=== PATIENT | female | born 1950 | race Two or more races ===

== ENCOUNTER 2016-06-05 17:38 | Inpatient (IN) | payer MEDICARE ==
[~2016-06-05] VITALS: Ht 152.4 cm; Wt 78.9 kg
--- NOTE | 2016-06-05 17:44 | NUR ---
PT [id number] FROM URGENT CARE: CHEST PAIN. NITRO X 3 GIVEN IN FIELD. BS 168 IN FIELD. PLACED ON MONITOR. VSS. AWAITING MD ORDER
--- NOTE | 2016-06-05 17:50 | NUR ---
AT BEDSIDE FOR EVAL
--- NOTE | 2016-06-05 18:06 | NUR ---
LAB AT BEDSIDE BLOOD SAMPLE COLLECTED SENT TO LAB
[2016-06-05 18:09] LABS: BASOPHILS % (AUTO) 0.4 % (0.0-2.0); EOSINOPHILS # (AUTO) 0.1 /CMM (0.0-0.7); EOSINOPHILS % (AUTO) 1.2 % (0.0-6.0); HEMATOCRIT 40 % (33-45); HEMOGLOBIN 13.7 g/dL (11.5-14.8); LYMPHOCYTES # (AUTO) 4.4 /CMM (0.8-4.8); LYMPHOCYTES % (AUTO) 46.5 % (20.0-44.0); MEAN CORPUSCULAR HEMOGLOBIN 32 PG (26.0-33.0); MEAN CORPUSCULAR HGB CONC 35 g/dl (31.0-36.0); MEAN CORPUSCULAR VOLUME 92 fL (82-100); MONOCYTES # (AUTO) 0.7 /CMM (0.1-1.30); MONOCYTES % (AUTO) 7.5 % (2.0-12.0); NEUTROPHILS # (AUTO) 4.1 /CMM (1.8-8.9); NEUTROPHILS % (AUTO) 44.4 % (43.0-81.0); PLATELET COUNT (AUTO) 335 /CMM (150-450); RDW COEFFICIENT OF VARIATION 13.3 (11.5-15.0); WHITE BLOOD COUNT (AUTO) 9.3 K/uL (4.3-11.0)
[2016-06-05 18:19] LABS: CALCIUM, SERUM 9.5 mg/dL (8.5-10.1); CREATININE 0.8 mg/dL (0.6-1.3); POTASSIUM 3.8 mmol/L (3.5-5.1)
[2016-06-05 18:22] LABS: INR 0.97 (0.87-1.13); PROTHROMBIN TIME 10.1 SECS (9.5-12.7)
[2016-06-05 18:27] LABS: TROPONIN I 0.12 ng/mL (0.00-0.056)
[2016-06-05] MEDS ORDERED: HYDR-3326 PO (18:42)
[2016-06-05] MEDS ORDERED: METH2.5T PO (18:42)
[2016-06-05] MEDS ORDERED: DULO60CA45 PO (18:42)
[2016-06-05] MEDS ORDERED: MULT-479 PO (18:42)
[2016-06-05] MEDS ORDERED: FOLI1TAB16 PO (18:42)
[2016-06-05] MEDS ORDERED: CERT400S SQ (18:44)
[2016-06-05] MEDS ORDERED: NITROGLYCERIN 0.4 MG/TAB BOTTLE ONE (19:08)
[2016-06-05] MEDS ORDERED: CLOPIDOGREL BISULFATE 75 MG TABLET ONE (19:08)
[2016-06-05] MEDS ORDERED: ENOXAPARIN SODIUM 80 MG/0.8 ML DISP.SYRIN SQ ONE (19:09)
[2016-06-05] MEDS ORDERED: ENOXAPARIN SODIUM 60 MG/0.6 ML DISP.SYRIN SQ ONE (19:30)
[2016-06-05] MEDS ORDERED: NITROGLYCERIN 0.4 MG/TAB BOTTLE SL ONE (19:30)
[2016-06-05] MEDS ORDERED: CLOPIDOGREL BISULFATE 75 MG TABLET PO ONE (19:30)
--- NOTE | 2016-06-05 19:49 | NUR ---
GAVE REPROT TO CHLOE GABRIEL TELE [address] WEST TRANSFER VIA ACLS PROTOCOL
[2016-06-05 20:10] VITALS: BP 141/71
[2016-06-05 20:14] VITALS: BP 141/71
[2016-06-05] MEDS ORDERED: ACETAMINOPHEN 325 MG TABLET PO PRN (20:30)
[2016-06-05] MEDS ORDERED: LORAZEPAM 1 MG TABLET PO PRN (20:30)
[2016-06-05] MEDS ORDERED: ONDANSETRON HCL/PF 4 MG/2 ML VIAL IVP PRN (20:30)
[2016-06-05] MEDS ORDERED: NITROGLYCERIN 0.4 MG/TAB BOTTLE SL PRN (20:30)
[2016-06-05] MEDS ORDERED: DOCUSATE SODIUM 100 MG CAPSULE PO PRN (20:30)
[2016-06-05] MEDS ORDERED: DEXTROSE 50%-WATER 50 ML DISP.SYRIN IV PRN (20:30)
[2016-06-05] MEDS ORDERED: MORPHINE SULFATE INJ 2 MG/ML DISP.SYRIN IV PRN (20:30)
[2016-06-05] MEDS ORDERED: ZOLPIDEM TARTRATE 5 MG TABLET PO PRN (20:30)
--- NOTE | 2016-06-05 20:30 | NUR ---
RN INITIAL NOTES RECEIVED PATIENT FROM ER, PATIENT IN A GURNEY, TRANSPORTED VIA ACLS PROTOCOL. PATIENT OBSERVED WITH STEADY GAIT, ABLE TO AMBULATE AD HELEN, STANDBY PRECAUTION OBSERVED. PATIENT DENIES ANY PAIN AND DISCOMFORT. DENIES CHEST PAIN, DENIES DIZZINESS. PATIENT ORIENTED TO UNIT PROTOCOLS AND USE OF CALL LIGHT. PATIENT SATURATING WELL AT 97% ON ROOM AIR, INITIATED O2 THERAPY AT 2LPM VIA NC PER PROTOCOL FOR CHEST PAIN. PATIENT CONNECTED TO TELE, SR WITH BBB AT 82. SKIN IS INTACT, NO SKIN BREAKDOWN. NO LIMITATIONS IN ROM. R FOREARM G18, FLUSHED AND PATENT, NO SIGNS OF INFILTRATION. PATIENT'S BELONGINGS CHECK, FILED IN CHART. PATIENT'S NEEDS ANTICIPATED AND MET. SAFETY AND COMFORT ENSURED. BED IN LOW AND LOCKED POSITION. CALL LIGHT IN REACH. WILL MONITOR CLOSELY. UNDER THE CARE OF DR. WEST, ORDERS NOTED AND CARRIED OUT. PATIENT UPDATED WITH PLAN OF CARE.
[2016-06-05] MEDS ORDERED: CARVEDILOL 6.25 MG TABLET ONE (21:05)
[2016-06-05] MEDS ORDERED: HYDROCODONE/APAP 5/325MG 1 EACH TABLET ONE (21:06)
--- NOTE | 2016-06-05 21:15 | NUR ---
RN NOTES FOLLOWED UP WITH DR. WEST REGARDING THE PATIENT'S TROPONIN ORDER. PATIENT'S TROPONIN TO BE CYCLED WITH EKG [id number]. ORDER OBTAINED, NOTED AND CARRIED OUT. PATIENT MADE AWARE.
[2016-06-05] MEDS: HYDROCODONE/APAP 5/325MG 1 EACH TABLET PO PRN (21:24)
[2016-06-05] MEDS: CARVEDILOL 12.5 MG TABLET PO SCH (21:27)
[2016-06-05] MEDS: BLOOD SUGAR DIAGNOSTIC 1 EACH STRIP IN SCH (21:32)
[2016-06-05] MEDS: INSULIN REGULAR, HUMAN 100 UNIT/ML 3 ML VIAL SQ PRN (21:39)
--- NOTE | 2016-06-05 21:40 | NUR ---
RN NOTES PATIENT WITH ACCUCHECK ORDER. PATIENT'S BS NOTED TO BE 156. PATIENT WAS SUPPOSED TO GET 2UNITS OF REGULAR INSULIN ORDERED PER SLIDING SCALE. PATIENT REFUSED INSULIN, PER PATIENT SHE HAS HAD NOT USED ANY INSULIN NOR WAS DIAGNOSED WITH DM. EXPLAINED RISKS AND BENEFITS, TO NO AVAIL. PATIENT'S RIGHTS RESPECTED. INFORMED DR. WEST OF THE PATIENT'S REFUSAL FOR USE OF INSULIN, DR. WEST OKAY WITH IT, CONTINUE WITH ACCUCHECK ORDERED. PATIENT MADE AWARE, VERBALIZED UNDERSTANDING WITH ACCUCHECK. NOTED.
[2016-06-05] MEDS: DULOXETINE HCL 30 MG CAPSULE.DR PO SCH (21:44)
[2016-06-06] VITALS: BP 116/66
--- NOTE | 2016-06-06 00:45 | NUR ---
RN NOTES DR. WEST ON UNIT. NOTIFIED DR. WEST OF THE PATIENT'S TROPONIN AT 2200, VALUE AT 0.133. EKG ALSO SHOWN TO DR. WEST, NO CHANGE FROM THE EKG IN ER. NNO GIVEN.
--- NOTE | 2016-06-06 01:40 | NUR ---
RN NOTES PATIENT IN BED, SLEEPING COMFORTABLY. PATIENT WITH NO ACUTE DISTRESS. RESPIRATION IS EVEN AND UNLABORED WITH NO DISTRESS. PATIENT NOTED TO BE SB ON MONITOR, 57-58. NON-SUSTAINING AND JUMPS BACK UP TO SR AT 60s. CALL LIGHT IN REACH.
[2016-06-06] MEDS: HYDROCODONE/APAP 5/325MG 1 EACH TABLET PO PRN ×3 (03:11→23:05)
[2016-06-06 04:00] VITALS: BP 139/76
[2016-06-06 04:46] LABS: BASOPHILS % (AUTO) 0.5 % (0.0-2.0); EOSINOPHILS # (AUTO) 0.1 /CMM (0.0-0.7); EOSINOPHILS % (AUTO) 1.5 % (0.0-6.0); HEMATOCRIT 37 % (33-45); HEMOGLOBIN 12.5 g/dL (11.5-14.8); LYMPHOCYTES # (AUTO) 5.5 /CMM (0.8-4.8); LYMPHOCYTES % (AUTO) 60.3 % (20.0-44.0); MEAN CORPUSCULAR HEMOGLOBIN 32 PG (26.0-33.0); MEAN CORPUSCULAR HGB CONC 34 g/dl (31.0-36.0); MEAN CORPUSCULAR VOLUME 93 fL (82-100); MONOCYTES # (AUTO) 0.5 /CMM (0.1-1.30); NEUTROPHILS # (AUTO) 2.9 /CMM (1.8-8.9); NEUTROPHILS % (AUTO) 31.7 % (43.0-81.0); PLATELET COUNT (AUTO) 289 /CMM (150-450); RDW COEFFICIENT OF VARIATION 13.8 (11.5-15.0); RED BLOOD CELL COUNT(AUTO) 3.96 MIL/uL (4.0-5.2); WHITE BLOOD COUNT (AUTO) 9.2 K/uL (4.3-11.0)
[2016-06-06 05:02] LABS: CREATININE 0.8 mg/dL (0.6-1.3); MAGNESIUM 1.7 mg/dL (1.8-2.4); PHOSPHORUS 4.3 mg/dL (2.5-4.9); POTASSIUM 3.9 mmol/L (3.5-5.1)
[2016-06-06 05:13] LABS: EOSINOPHILS % (MANUAL) 1 % (0-4); LYMPHOCYTES % (MANUAL) 61 % (16-48); MONOCYTES % (MANUAL) 3 % (0-11.0); NEUTROPHILS % (MANUAL) 34 (42-76); PLATELET ESTIMATE ADEQUATE; REACTIVE LYMPHOCYTES 1 % (0-0)
[2016-06-06 05:29] LABS: PROTHROMBIN TIME 10.7 SECS (9.5-12.7)
--- NOTE | 2016-06-06 06:00 | NUR ---
RN NOTES AT 0545, PATIENT COMPLAINED OF BILATERAL JAW PAIN, 6/10. UPON FURTHER ASSESSMENT, PATIENT ALSO COMPLAINING OF BILATERAL WRIST PAIN, AND BILATERAL SHOULDER PAIN. VS: 166/68, 94% ON ROOM AIR, 61bpm. PATIENT REQUESTED NITROSTAT SL PER PATIENT IT HAS HELPED HER IN THE ER WHEN SHE EXPERIENCED THE SAME DISCOMFORT. GIVEN TO PATIENT. REASSESSED AT 0550, PATIENT VERBALIZES RELIEF FROM PAIN, 3/10. VS: 131/73, 62, 96% WITH 2LPM OF O2 VIA NC. PATIENT'S TROPONIN TRENDING DOWN, 0.115, EKG WITH NO CHANGES. WILL ENDORSE ACCORDINGLY.
[2016-06-06 06:18] LABS: APPEARANCE,URINE CLEAR (CLEAR); BILIRUBIN,URINE NEGATIVE (NEGATIVE); BLOOD, URINE NEGATIVE Ery/uL (NEGATIVE); COLOR,URINE YELLOW (YELLOW); KETONES,URINE NEGATIVE (NEGATIVE); LEUKOCYTE ESTERASE ,URINE NEGATIVE (NEGATIVE); NITRITE, URINE NEGATIVE (NEGATIVE); PH,URINE 6.5 (5.0-8.0); PROTEIN,URINE NEGATIVE (NEGATIVE); UGLUCOSE NEGATIVE (NEGATIVE); UROBILINOGEN,URINE 0.2 EU/dL (0.2)
[2016-06-06 06:39] LABS: PHENCYCLIDINE SCREEN,URINE NEGATIVE (NEGATIVE)
[2016-06-06 06:44] LABS: CANNABINOID, URINE POSITIVE (NEGATIVE)
[2016-06-06] MEDS: BLOOD SUGAR DIAGNOSTIC 1 EACH STRIP IN SCH ×4 (07:33→22:56)
[2016-06-06] MEDS: INSULIN REGULAR, HUMAN 100 UNIT/ML 3 ML VIAL SQ PRN ×2 (07:34→13:09)
[2016-06-06 08:00] VITALS: BP_SYST 152; BP_SYST 153; BP_DIAS 66
[2016-06-06] MEDS ORDERED: METHOTREXATE SODIUM (2.5MG) 2.5 MG TABLET PO SCH (09:00)
[2016-06-06] MEDS: CARVEDILOL 12.5 MG TABLET PO SCH ×2 (09:03→22:57)
[2016-06-06] MEDS: MULTIVITAMINS W-MINERALS 1 TAB TABLET PO SCH (09:04)
[2016-06-06] MEDS: FOLIC ACID 1 MG TABLET PO SCH (09:04)
[2016-06-06] MEDS: ENOXAPARIN SODIUM 80 MG/0.8 ML DISP.SYRIN SQ SCH ×2 (09:11→23:04)
--- NOTE | 2016-06-06 09:43 | NUR ---
RN NOTES PT AND DAUGHTER AT BEDSIDE, INFORMED BOTH IF THEY COULD BRING METHOTREXATE. PER DAUGHTER THEY WILL BRING MED
[2016-06-06] MEDS: MORPHINE SULFATE INJ 2 MG/ML DISP.SYRIN IV PRN ×2 (10:57→19:36)
[2016-06-06 12:00] VITALS: BP_SYST 146; BP_SYST 155; BP_DIAS 65; BP_DIAS 67
[2016-06-06] MEDS ORDERED: ATORVASTATIN 10 MG TABLET PO SCH (12:00)
[2016-06-06] MEDS ORDERED: TICAGRELOR 90 MG TABLET PO SCH (12:00)
[2016-06-06 12:23] LABS: THYROID STIMULATING HORMONE 1.013 uIU/mL (0.358-3.74)
[2016-06-06] MEDS ORDERED: IV SET PRIMARY PUMP SET 1 EA INFUS.SET MC ONE (12:42)
[2016-06-06] MEDS: Magnesium 1GM/D5W 100ML PREMIX 100 ML IV SCH ×2 (12:57→14:47)
[2016-06-06] MEDS: VALSARTAN 80 MG TABLET PO SCH (13:00)
[2016-06-06] MEDS: CLOPIDOGREL BISULFATE 75 MG TABLET PO SCH (13:00)
[2016-06-06 16:00] VITALS: BP 138/66
--- NOTE | 2016-06-06 18:00 | NUR ---
RN NOTES PT RESTING IN BED, AWAKE ALERT ORIENTEDX3. NO ACUTE DISTRESS NOTED. ALL DUE MEDS GIVEN, NEEDS ATTENDED AND MET. PT SAID SHE RECEIVED A CALL FROM CONTROL INTEGRATION ENGINEER, SHE WAS INFORMED HER CARDIAC CATH WILL BE ON WEDNESDAY AT [facility], AT 10.30 AM FRONT LINE LEADER TIME IS AT 7.30 AM. CN SOON AWARE.
--- NOTE | 2016-06-06 19:00 | NUR ---
RN INITIAL NOTES RECEIVED PATIENT IN BED, PATIENT COMPLAINING OF R SHOULDER PAIN. PER PATIENT SHE WAS AMBULATING DOWN THE HALLWAY AND SHE SUDDENLY FELT DISCOMFORT ON HER SHOULDERS AND SHE GOT ANXIOUS. VS: 144/86, 94% ON ROOM AIR, 72, 20, 6/10. PATIENT REQUESTED FOR PAIN MEDICATION, PATIENT TO BE MEDICATED FOR PAIN. REINFORCED USE OF O2 FOR COMFORT. ENCOURAGED PATIENT TO CALM DOWN AND RELAX, REDIRECTED PATIENT NEEDED, DISTRACTIONS PROVIDED FOR THE PATIENT, PER PATIENT SHE'S STARTING TO FEEL CALM. PATIENT'S NEEDS ANTICIPATED AND MET. SAFETY AND COMFORT ENSURED. BED IN LOW AND LOCKED POSITION. CALL LIGHT IN REACH. WILL MONITOR CLOSELY. Addendum: 06/06/16 at 2214 by NURIA PERALTA RN PATIENT IS SR with BBB ON TELE, HR IN THE 70s.
[2016-06-06 20:00] VITALS: BP_SYST 146; BP_SYST 151; BP_DIAS 64; BP_DIAS 75
--- NOTE | 2016-06-06 21:30 | NUR ---
RN NOTES PATIENT SLEEPING SOUNDLY, NO DISTRESS. SR ON MONITOR WITH HR OF 62. SAFETY AND COMFORT ENSURED. CALL LIGHT IN REACH.
[2016-06-06] MEDS: DULOXETINE HCL 30 MG CAPSULE.DR PO SCH (22:56)
--- NOTE | 2016-06-06 23:20 | NUR ---
RN NOTES PATIENT AWAKE AT THIS TIME, ALL DUE HS MEDS GIVEN TO PATIENT ORDERED. PATIENT VERBALIZES FEELING WELL RESTED, NO ACUTE DISTRESS AND DISCOMFORT. PATIENT C/O BILATERAL WRIST ARTHRITIC PAIN, PATIENT REQUESTED FOR NORCO, GIVEN NEEDED. WILL MONITOR FOR EFFECTIVENESS. NEEDS ANTICIPATED AND MET AT THIS TIME. CALL LIGHT IN REACH.
[2016-06-07] VITALS: BP 150/73
[2016-06-07 04:00] VITALS: BP 162/66
[2016-06-07] MEDS: HYDROCODONE/APAP 5/325MG 1 EACH TABLET PO PRN ×4 (04:04→21:02)
--- NOTE | 2016-06-07 06:50 | NUR ---
RN NOTES PATIENT IN BED, RESTING COMFORTABLY. NOT IN ANY DISTRESS. PATIENT MEDICATED FOR PAIN NEEDED WITH GOOD EFFECT FOR THE PATIENT, ABLE TO VERBALIZE RELIEF FROM PAIN. ABLE TO DO SELF CARE AD HELEN, ASSISTED NEEDED. PATIENT'S NEEDS ANTICIPATED AND MET. SAFETY AND COMFORT ENSURED. BED IN LOW AND LOCKED POSITION. CALL LIGHT IN REACH. ALL DUE MEDS GIVEN ORDERED. WILL ENDORSE ACCORDINGLY FOR CONTINUITY OF CARE. Addendum: 06/07/16 at 0658 by NURIA PERATLA RN REMAINS SINUS RHYTHM, OCCASIONALLY GOES TO SB OVERNIGHT WITH LOWEST AT 58 DURING SLEEPING HOURS. NO C/O CHEST PAIN OVERNIGHT.
--- NOTE | 2016-06-07 07:50 | NUR ---
SVP RESEARCH AND STRATEGIC ANALYSIS INITIAL NOTES PT IS IN BED, A/O X4, IN O2 NC 2LPM, SATURATING 97%, NO C/O SOB, NO CHEST PAIN, ON TELE MONITOR SR, BRP MOTIVATED PT OF SELF CARE, REMINDED PT ABOUT NPO STATUS AFTER MIDNIGHT, IV SITES PATENT AND FLUSHED. ALL SAFETY MEASURES MAINTAINED, CALL LIGHTS WITHIN REACH
[2016-06-07 08:00] VITALS: BP 111/71
[2016-06-07] MEDS: BLOOD SUGAR DIAGNOSTIC 1 EACH STRIP IN SCH ×4 (08:11→21:03)
[2016-06-07] MEDS: MULTIVITAMINS W-MINERALS 1 TAB TABLET PO SCH (08:12)
[2016-06-07] MEDS: FOLIC ACID 1 MG TABLET PO SCH (08:13)
[2016-06-07] MEDS: CARVEDILOL 12.5 MG TABLET PO SCH ×2 (08:14→21:02)
[2016-06-07] MEDS: VALSARTAN 80 MG TABLET PO SCH (08:15)
[2016-06-07] MEDS: MORPHINE SULFATE INJ 2 MG/ML DISP.SYRIN IV PRN ×2 (09:36→17:29)
[2016-06-07] MEDS: CLOPIDOGREL BISULFATE 75 MG TABLET PO SCH (10:41)
[2016-06-07] MEDS: ENOXAPARIN SODIUM 80 MG/0.8 ML DISP.SYRIN SQ SCH ×2 (10:43→20:22)
[2016-06-07 12:00] VITALS: BP 124/68
[2016-06-07 16:00] VITALS: BP 131/69
--- NOTE | 2016-06-07 19:49 | NUR ---
all [facility] meds cleared for pt safety
[2016-06-07 20:00] VITALS: BP 126/60
--- NOTE | 2016-06-07 20:20 | NUR ---
RN NOTES SPOKE WITH DR WEST, HOLD LOVENOX D/T CARDIAC CATH PROCEDURE SCHEDULED AT AM.
[2016-06-07] MEDS: DULOXETINE HCL 30 MG CAPSULE.DR PO SCH (21:03)
[2016-06-07] MEDS: INSULIN REGULAR, HUMAN 100 UNIT/ML 3 ML VIAL SQ PRN (21:11)
[2016-06-08] VITALS: BP 119/50
[2016-06-08] MEDS: HYDROCODONE/APAP 5/325MG 1 EACH TABLET PO PRN ×2 (03:15→08:03)
[2016-06-08 04:00] VITALS: BP 143/68
[2016-06-08 06:49] LABS: BASOPHILS % (AUTO) 0.4 % (0.0-2.0); EOSINOPHILS # (AUTO) 0.1 /CMM (0.0-0.7); EOSINOPHILS % (AUTO) 2.1 % (0.0-6.0); HEMATOCRIT 39 % (33-45); LYMPHOCYTES # (AUTO) 3.8 /CMM (0.8-4.8); LYMPHOCYTES % (AUTO) 54.2 % (20.0-44.0); MEAN CORPUSCULAR HEMOGLOBIN 31 PG (26.0-33.0); MEAN CORPUSCULAR HGB CONC 34 g/dl (31.0-36.0); MEAN CORPUSCULAR VOLUME 93 fL (82-100); MONOCYTES # (AUTO) 0.5 /CMM (0.1-1.30); MONOCYTES % (AUTO) 7.5 % (2.0-12.0); NEUTROPHILS # (AUTO) 2.5 /CMM (1.8-8.9); NEUTROPHILS % (AUTO) 35.8 % (43.0-81.0); PLATELET COUNT (AUTO) 273 /CMM (150-450); RDW COEFFICIENT OF VARIATION 13.6 (11.5-15.0); RED BLOOD CELL COUNT(AUTO) 4.16 MIL/uL (4.0-5.2); WHITE BLOOD COUNT (AUTO) 7.1 K/uL (4.3-11.0)
--- NOTE | 2016-06-08 06:49 | NUR ---
RN NOTES CALLED [facility] DIRECTOR OF PATIENT CARE TWICE, WENT NO ANSWER, CALL WENT TO VOICE MAIL WILL CALL AGAIN AT 7AM
[2016-06-08] MEDS: BLOOD SUGAR DIAGNOSTIC 1 EACH STRIP IN SCH ×2 (06:55→12:00)
[2016-06-08 07:03] LABS: ALBUMIN 3.8 g/dL (3.4-5.0); BILIRUBIN,TOTAL 0.7 mg/dL (0.2-1.0); CALCIUM, SERUM 8.9 mg/dL (8.5-10.1); CREATININE 0.8 mg/dL (0.6-1.3); MAGNESIUM 1.6 mg/dL (1.8-2.4); PHOSPHORUS 4.4 mg/dL (2.5-4.9); POTASSIUM 4.3 mmol/L (3.5-5.1); TOTAL PROTEIN, SERUM 7.1 g/dL (6.4-8.2)
--- NOTE | 2016-06-08 07:19 | NUR ---
RN NOTES SPOKE WITH BONY FROM [facility] FORECLOSURE CLERK, CONSENT WILL BE DONE AT [facility] WHEN PATIENT ARRIVED. PER BONY PT WAS NOT ON THE SCHEDULE FOR 1030, BUT CARDIAC CATH CAN HAVE COME IN AT 1100 INSTEAD, RESISTANCE MACHINE WELDER SETTER WILL ARRANGE A LATER PROPERTY COORDINATOR TIME. INFORMED DR TO ABOUT THE SITUATION, AND PROCEDURE WILL BE DONE PLANNED.
[2016-06-08] MEDS ORDERED: Magnesium 1GM/D5W 100ML PREMIX 100 ML IV SCH (07:30)
--- NOTE | 2016-06-08 07:50 | NUR ---
DIRECTOR SOCIAL CLOSING NOTES NO SIGNIFICANT CHANGES OVERNIGHT, NO SOB, NO C/O CHEST PAIN, ON ROOM AIR SATURATING 99%. NPO EXCEPT MEDS SINCE MIDNIGHT, IV SITE FLUSHED AND PATENT. PT HAD EPISODES OF ANXIETY REGARDING THE PROCEDURE AT AM, STAYED WITH THE PATIENT, PROVIDED COMFORT AND SECURITY. ALL SAFETY MEASURES MAINTAINED, CALL LIGHTS WITHIN REACH. FAMILY AT BEDSIDE WILL, ENDORSED TO AM NURSE FOR CONTINUATION OF CARE.
[2016-06-08] MEDS: CLOPIDOGREL BISULFATE 75 MG TABLET PO SCH (07:56)
[2016-06-08] MEDS: MULTIVITAMINS W-MINERALS 1 TAB TABLET PO SCH (07:57)
[2016-06-08] MEDS: ENOXAPARIN SODIUM 80 MG/0.8 ML DISP.SYRIN SQ SCH (07:57)
[2016-06-08] MEDS: FOLIC ACID 1 MG TABLET PO SCH (07:57)
[2016-06-08] MEDS ORDERED: SECONDARY IV SET 1 EA INFUS.SET MC ONE (07:57)
[2016-06-08 08:00] VITALS: BP 128/73
--- NOTE | 2016-06-08 08:00 | NUR ---
RN INITIAL NOTES: Received patient on bed during rounds, awake, alert and oriented x4, able to make needs known, call lights placed within reached, instructed to press call light when in need of any assistance, patient verbalized understanding of instructions. On RA, saturating well. With LFA G22 SL flushed with NS and patent. NO SOB, No LOC, respirations are even and unlabored, no acute distress noted. NPO instructed and maintained. For Cardiac catheterization at [facility] at 1130am (changed timing from 1030am, shredder picker at 0900hrs), consent, [facility] will procure. Patient updated of change of time to [facility] . BPR, with contact guard, steady gait. No chestpain noted at this time. To continue to monitor accordingly.
[2016-06-08 08:49] VITALS: BP 128/73
[2016-06-08] MEDS: CARVEDILOL 12.5 MG TABLET PO SCH (08:49)
[2016-06-08] MEDS: VALSARTAN 80 MG TABLET PO SCH (08:49)
--- NOTE | 2016-06-08 09:00 | NUR ---
RN NOTES: Seen and examined by Dr. Beltran with orders noted and carried out. Mg+ 1.6 ordered for 2gms today, informed MD that 1 bag will be given and the next will be when she comes back and ok as per Dr. Beltran.
--- NOTE | 2016-06-08 09:15 | NUR ---
RN NOTES: Patient left the unit in stable condition via gurney by [facility] ambulance, family at bedside. No chestpain noted.
--- NOTE | 2016-06-08 14:32 | NUR ---
RN NOTES: CM Hermann informed patient not coming back from [facility] post procedure.
== END 2016-06-08 14:24 | disposition short-term general hospital (02) | DRG 282 ==
LOC: ER 17:40 → TELE1 20:18
PROVIDERS: ADMIT Internal Medicine; ATTEND Internal Medicine
DX: I21.4 Non-ST elevation (NSTEMI) myocardial infarction (principal); M06.9 Rheumatoid arthritis, unspecified; I25.10 Atherosclerotic heart disease of native coronary artery without angina pectoris; I10 Essential (primary) hypertension; E78.5 Hyperlipidemia, unspecified; E11.9 Type 2 diabetes mellitus without complications; F32.9 Major depressive disorder, single episode, unspecified; F41.9 Anxiety disorder, unspecified; Z79.899 Other long term (current) drug therapy; D72.820 Lymphocytosis (symptomatic); E83.42 Hypomagnesemia; M19.90 Unspecified osteoarthritis, unspecified site
CPT/HCPCS: 36415; 71010-TC; 80048-TC; 80053-TC; 80061-TC; 80305; 81000-TC; 82150-TC; 82962-TC; 83690-TC; 83735-TC; 84100-TC; 84439-TC; 84443-TC; 84484-TC; 85025-TC; 85610-TC; 85730-TC; 87081-TC; 93307-TC; A4606; J1650; J1815; J2270; J3475; J8610; Z7610

== ENCOUNTER 2020-10-25 05:13 | Inpatient (IN) | payer MEDICARE ==
[~2020-10-25] VITALS: Ht 157.5 cm; Wt 81.6 kg
[~2020-10-25 05:13] MED LIST: CERT400S SQ; DULO60CA45 PO; FOLI1TAB16 PO; HYDR-3974 PO; METH2.5T PO; MULT-479 PO
--- NOTE | 2020-10-25 05:33 | NUR ---
[id number] FOR C/O CHEST PAIN RADIATING TO STOMACH X2 DAYS. 3 NITRO STRUCTURAL STEEL IRONWORKER. +N/V. PT ALERT AND ORIENTED X3. NON LABORED BREATHING.
[2020-10-25 05:40] LABS: BASOPHILS # (AUTO) 0.2 K/uL (0.0-0.2); BASOPHILS % (AUTO) 0.7 % (0.0-2.0); EOSINOPHILS % (AUTO) 0.4 % (0.0-6.0); HEMATOCRIT 40 % (33-45); HEMOGLOBIN 13.2 g/dL (11.5-14.8); LYMPHOCYTES # (AUTO) 4.6 K/uL (0.8-4.8); LYMPHOCYTES % (AUTO) 21.7 % (20.0-44.0); MEAN CORPUSCULAR HGB CONC 33 g/dl (31.0-36.0); MEAN CORPUSCULAR VOLUME 96 fL (82-100); MONOCYTES # (AUTO) 1.4 K/uL (0.1-1.30); MONOCYTES % (AUTO) 6.8 % (2.0-12.0); NEUTROPHILS # (AUTO) 14.7 K/uL (1.8-8.9); NEUTROPHILS % (AUTO) 70.4 % (43.0-81.0); PLATELET COUNT (AUTO) 317 K/uL (150-450); RED BLOOD CELL COUNT(AUTO) 4.15 MIL/uL (4.0-5.2)
--- NOTE | 2020-10-25 06:10 | NUR ---
CALLED FOR COVID SWAB
--- NOTE | 2020-10-25 06:15 | NUR ---
pt attempted to get urine, unable to urinate
[2020-10-25 06:22] LABS: CALCIUM, SERUM 9.3 mg/dL (8.5-10.1); CARBON DIOXIDE 25 mmol/L (21-32); CHLORIDE 101 mmol/L (98-107); CREATININE 1.2 mg/dL (0.6-1.3); GLUCOSE 272 mg/dL (74-106); POTASSIUM 3.8 mmol/L (3.5-5.1); SODIUM SERUM 139 mmol/L (136-145); UREA NITROGEN, BLOOD 26 mg/dL (7-18)
[2020-10-25 06:28] LABS: ALANINE AMINOTRANSFERASE 15 U/L (12-78); ALBUMIN 4.1 g/dL (3.4-5.0); ALKALINE PHOSPHATASE 95 U/L (46-116); ASPARTATE AMINOTRANSFERASE 14 U/L (15-37); BILIRUBIN,DIRECT 0.1 mg/dL (0.0-0.2); BILIRUBIN,TOTAL 0.4 mg/dL (0.2-1.0); TOTAL PROTEIN, SERUM 7.9 g/dL (6.4-8.2)
[2020-10-25] MEDS ORDERED: MORPHINE SULFATE INJ 2 MG/ML DISP.SYRIN IV ONE ×2 (06:30→08:30)
[2020-10-25] MEDS ORDERED: MORPHINE SULFATE INJ 4 MG/ML DISP.SYRIN ONE ×2 (06:32→08:25)
--- NOTE | 2020-10-25 06:45 | NUR ---
covid swab collected and sent to lab.
[2020-10-25] MEDS ORDERED: METO25TA20 PO (08:54)
[2020-10-25] MEDS ORDERED: MELO-107 PO (08:54)
[2020-10-25] MEDS ORDERED: GABA-532 PO (08:54)
[2020-10-25 09:04] LABS: BILIRUBIN,URINE NEGATIVE (NEGATIVE); COLOR,URINE YELLOW (YELLOW); LEUKOCYTE ESTERASE ,URINE NEGATIVE (NEGATIVE); NITRITE, URINE NEGATIVE (NEGATIVE); PROTEIN,URINE NEGATIVE (NEGATIVE); UGLUCOSE >=1000 mg/dL (NEGATIVE); UROBILINOGEN,URINE 0.2 EU/dL (0.2)
[2020-10-25 09:26] LABS: BACTERIA,URINE Few /HPF (None Seen); RBC,URINE 0-2 /HPF (0-2); SQUAMOUS EPITHELIAL CELL,UR Moderate /HPF (None Seen); WBC,URINE 0-2 /HPF (0-3)
[2020-10-25] MEDS ORDERED: HYDROCODONE/APAP 5/325MG TABLET PO PRN (10:00)
[2020-10-25] MEDS ORDERED: MORPHINE SULFATE INJ 2 MG/ML DISP.SYRIN IV PRN (10:00)
[2020-10-25] MEDS ORDERED: CERTOLIZUMAB PEGOL 400 MG SQ SCH (10:00)
[2020-10-25] MEDS ORDERED: METHOTREXATE SODIUM (2.5MG) 2.5 MG TABLET PO SCH (10:00)
[2020-10-25] MEDS ORDERED: NITROGLYCERIN 0.4 MG/TAB BOTTLE SL PRN (10:00)
[2020-10-25] MEDS ORDERED: PANTOPRAZOLE 40 MG VIAL IV ONE ×2 (10:00)
[2020-10-25] MEDS ORDERED: CT SWABBABLE VALVE TRANS SET 1 EA INFUS.SET MC ONE (10:49)
[2020-10-25] MEDS ORDERED: METOPROLOL TARTRATE INJ 5 MG/5 ML AMPUL ONE ×2 (10:49→10:51)
[2020-10-25] MEDS ORDERED: IOHEXOL-350 100 ML VIAL IV ONE (10:49)
[2020-10-25] MEDS ORDERED: NITROGLYCERIN 0.4 MG/TAB BOTTLE ONE (10:50)
[2020-10-25] MEDS ORDERED: IV NS 0.9% 250 ML IV ONE (10:50)
[2020-10-25] MEDS: METOPROLOL TARTRATE INJ 5 MG/5 ML AMPUL IVP PRN ×3 (11:05→11:15)
--- NOTE | 2020-10-25 11:23 | NUR ---
CTA PROCEDURE WELL TOLERATED BY THE PT. V/S STABLE, KEPT RESTED AND COMFORTABLE. REPORT GIVEN TO NERY SAHA FOR YASH.
[2020-10-25] MEDS ORDERED: NITROGLYCERIN 0.4 MG/TAB BOTTLE SL ONE ×2 (11:30)
[2020-10-25] MEDS ORDERED: METOPROLOL TARTRATE INJ 5 MG/5 ML AMPUL IVP PRN (11:30)
--- NOTE | 2020-10-25 11:57 | NUR ---
Report given to Yuly GABRIEL for kailash.
--- NOTE | 2020-10-25 12:02 | NUR ---
wheeled patient via gurney accompanied by RN and em[facility]. RN assigne to patient at bedside to Assume care.
--- NOTE | 2020-10-25 12:05 | NUR ---
Patient arrived from ER, AO X 4, Amharic speaking, no apparent distress noted. Patient admitting diagnosis: chest pain suspect unstable angina, has history of NC, multiple stent placement, rheumatoid arthritis, DM, HTN, hyperlipidemia, anxiety and depression. No respiratory distress, no SOB at this time, skin assessment done, skin intact, warm to touch, no pallor, no cyanosis noted. Patient oriented to call light, bed control, TV control, RN and SCREW DOWN assigned for her today, verbalized understanding and gratitude. Brakes locked, side rails up X 2, call light left within reach, will monitor closely for any changes.
[2020-10-25] MEDS: GABAPENTIN 100 MG CAPSULE PO SCH ×2 (12:52→17:29)
[2020-10-25] MEDS: HYDROCODONE/APAP 5/325MG TABLET PO PRN ×2 (12:52→17:30)
[2020-10-25] MEDS ORDERED: GABAPENTIN 100 MG CAPSULE PO SCH (13:00)
[2020-10-25] MEDS: MORPHINE SULFATE INJ 2 MG/ML DISP.SYRIN IV PRN ×2 (14:22→21:10)
[2020-10-25 16:00] VITALS: BP 127/78
[2020-10-25] MEDS ORDERED: METOPROLOL TARTRATE 25 MG TABLET PO SCH (17:00)
[2020-10-25] MEDS: METOPROLOL TARTRATE 25 MG TABLET PO SCH (17:30)
--- NOTE | 2020-10-25 18:48 | NUR ---
RN CLOSING NOTES Patient seen comfortably lying in bed, respirations even and unlabored, no SOB, no apparent distress noted. All medications given per MD order, tolerating well. Pain medications given when non pharmacological measures ineffective. All needs attended, call light left within reach, kept clean and dry, safety precautions maintained, brakes locked, side rails up X 2, will endorse to next shift for continuity of care.
[2020-10-25] MEDS: NITROGLYCERIN 0.4 MG/TAB BOTTLE SL PRN ×3 (19:57→20:23)
[2020-10-25 20:00] VITALS: BP 146/70
--- NOTE | 2020-10-25 20:00 | NUR ---
INVENTORY AUDITOR OPENING NOTES: RECEIVED PATIENT AWAKE IN BED, BED IN LOW POSITION, CALL LIGHTS WITHIN REACH ON TELE MONITORING SR-84, PATIENT COMPLAIN OF CHEST PAIN POINTING AT MID CHEST AREA V/S ARE TAKEN WITH BP AT 188/88 P-85, RR-20, TEMP-98.6, O2-100 RA PATIENT GIVEN NITROGLYCERINE 0.4 MG SL AT 7 5 MINUTES BP-165/93, 2010- STILL COMPLAIN OF PAIN BUT SUBSIDE A LITTLE BIT GIVEN NITRO 0.4MG SL, BP 152/97, 3RD DOSE GIVEN AT 2022 BP AFTER 5 MINUTES 146/70 PATIENT REQUESTED FOR MORPHINE 2ND DOSE GIVEN, PATIENT DOES NOT COMPLAIN OF ANY PAIN UPON ASKED, DUE MEDS GIVEN PLACED IN BED COMFORTABLY, WILL CONTINUE TO MONITOR.
[2020-10-25] MEDS ORDERED: DULOXETINE HCL 30 MG CAPSULE.DR PO SCH ×2 (22:00)
[2020-10-26] VITALS: BP 195/87
[2020-10-26] MEDS ORDERED: LABETALOL 20 MG/4 ML VIAL IV ONE (00:30)
[2020-10-26] MEDS ORDERED: LABETALOL 20 MG/4 ML VIAL ONE (00:59)
[2020-10-26 04:00] VITALS: BP 133/62
[2020-10-26] MEDS: HYDROCODONE/APAP 5/325MG TABLET PO PRN (04:06)
--- NOTE | 2020-10-26 06:53 | NUR ---
RN CLOSING NOTES: PATIENT SLEEP IN BED COMFORTABLY, BED IN LOW POSITION, CALL LIGHTS WITHIN REACH, NO COMPLAIN OF PAIN AND DISCOMFORT AT THIS TIME ON TEL MONITORING SR 77 WITH BBB, PATIENT KEPT CLEAN AND DRY ALL NEEDS MET ENDORSE TO INCOMING SHIFT.
[2020-10-26 08:00] VITALS: BP 177/66
--- NOTE | 2020-10-26 08:00 | NUR ---
COMPENSATION SUPERVISOR OPENING NOTES RECEIVED PATIENT IN BED, RESTING. EASY TO AROUSE. A/O X4. ON TELE MONITORING - READS SINUS RHYTHM IN THE 80S. PATIENT STATES NO CHEST PAIN. IV ACCESS TO LEFT FA #20 - SALINE LOCKED. SAFETY MEASURES IN PLACE. CALL LIGHT WITHIN REACH. WILL CONTINUE TO MONITOR.
[2020-10-26] MEDS: GABAPENTIN 100 MG CAPSULE PO SCH (08:11)
[2020-10-26] MEDS: METOPROLOL TARTRATE 25 MG TABLET PO SCH (08:12)
[2020-10-26] MEDS ORDERED: AMLODIPINE BESYLATE 5 MG TABLET PO SCH (09:00)
[2020-10-26] MEDS ORDERED: RANOLAZINE 500 MG TAB.ER.12H PO SCH (09:00)
[2020-10-26] MEDS ORDERED: MULTIVITAMIN/LUTEIN/MINERALS 1 TAB PO SCH ×2 (09:00)
[2020-10-26] MEDS ORDERED: MELOXICAM 7.5 MG TABLET PO SCH ×2 (09:00)
[2020-10-26] MEDS ORDERED: FOLIC ACID 1 MG TABLET PO SCH ×2 (09:00)
[2020-10-26 09:24] VITALS: BP 177/66
--- NOTE | 2020-10-26 11:50 | NUR ---
MS AIRPORT SECURITY SCREENER NOTE PATIENT DISCHARGED VIA PRIVATE CAR @ 1143. STABLE, A/O X4. ON ROOM AIR - NO SOB NOTED. NO DISTRESS/DISCOMFORT. PATIENT STATES NO CHEST PAIN OR DIZZINESS AT THIS TIME. PATIENT WALKS WITH STEADY GAIT. ALL EXITCARE AND PATIENT EDUCATION REVIEWED WITH PATIENT. DISCHARGE PAPERWORK AND PRESCRIPTION GIVEN TO PATIENT. IV ACCESS REMOVED. WRISTBAND REMOVED. PATIENT ACCOMPANIED TO LOBBY BY MYSELF AND PATIENT'S . MD AND CHARGE NURSE AWARE OF DC.
[2020-10-26] MEDS ORDERED: METHOTREXATE SODIUM (2.5MG) 2.5 MG TABLET PO SCH (22:00)
== END 2020-10-26 12:00 | disposition home or self-care (01) | DRG 303 ==
LOC: ER 05:19 → TELE 12:03 → MED 10-26 08:54
PROVIDERS: ADMIT Internal Medicine; ATTEND Internal Medicine
DX: I25.110 Atherosclerotic heart disease of native coronary artery with unstable angina pectoris (principal); I10 Essential (primary) hypertension; M19.90 Unspecified osteoarthritis, unspecified site; Z88.1 Allergy status to other antibiotic agents; Z88.8 Allergy status to other drugs, medicaments and biological substances; Z88.2 Allergy status to sulfonamides; I25.2 Old myocardial infarction; M79.7 Fibromyalgia; E11.9 Type 2 diabetes mellitus without complications; E78.5 Hyperlipidemia, unspecified; M06.9 Rheumatoid arthritis, unspecified; Z79.899 Other long term (current) drug therapy; K44.9 Diaphragmatic hernia without obstruction or gangrene; Z98.61 Coronary angioplasty status
CPT/HCPCS: 36415; 71045-TC; 75574; 80048-TC; 80076-TC; 81001; 84484-TC; 85025-TC; 85730-TC; 87081-TC; 93307-TC; C9803; G0378; J2270; J3490; J7050; Q9967